=== PATIENT | male | born 1990 ===

== ENCOUNTER 2019-05-16 09:43 | Outpatient (CLI) | payer BC ==
--- NOTE | 2019-05-16 10:56 | ULT ---
RENAL ULTRASOUND WITH DUPLEX EVALUATION: HISTORY: Hypertension. COMPARISON: None. FINDINGS: Grayscale, color Doppler vascular duplex with spectral analysis was performed of the kidneys and blad magui. Right Kidney: Size: 11.1 x 6.3 x 6.2 cm. Abnormality: Normal cortical echotexture. No hydronephrosis. Left Kidney: Size: 11.7 x 6.1 x 6.4 cm. Abnormality: Normal cortical echotexture. No hydronephrosis. Urinary bladder: Normal mucosa. Prevoid bladder volume was 91.4 cc. Peak systolic velocity within the aorta was 41.4 cm/s. Peak systolic velocity within the right main r enal artery was 101 cm/s. Peak systolic velocity within the left main renal artery was 74.6 cm/s. The right renal artery to aortic ratio is 2.44 and the left renal artery to aortic ratio is 1.80. Sample resistive index within an arcuate artery the right kidney is 0.43 and in the left kidney 0.51. IMPRESSION: 1. No focal renal lesion or hydronephrosis. 2. No sonographic evidence to suggest renal artery stenosis. Transcribed Date/Time: 05/16/2019 11:06 AM
== END 2019-05-16 09:44 | disposition home or self-care (01) ==
LOC: BICULT 09:43
PROVIDERS: ATTEND Family Medicine
DX: I10 Essential (primary) hypertension (principal)
CPT/HCPCS: 76770; 93975